=== PATIENT | female | born 1975 ===

== ENCOUNTER 2017-12-21 11:21 | Emergency (ER) | payer OTHER ==
[2017-12-21] MEDS ORDERED: OXYCODONE/APAP 5/325 TAB ONE (12:19)
[2017-12-21] MEDS ORDERED: CYCLOBENZAPRINE 10 MG TAB ONE (12:19)
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
== END 2017-12-21 16:40 | disposition home or self-care (01) ==
DX: S93.401A Sprain of unspecified ligament of right ankle, initial encounter (principal); S16.1XXA Strain of muscle, fascia and tendon at neck level, initial encounter; S80.02XA Contusion of left knee, initial encounter; S30.0XXA Contusion of lower back and pelvis, initial encounter; V43.53XA Car driver injured in collision with pick-up truck in traffic accident, initial encounter; Y92.410 Unspecified street and highway as the place of occurrence of the external cause; Y99.8 Other external cause status; Y93.89 Activity, other specified